=== PATIENT | male | born 1985 | race Caucasian/White ===

== ENCOUNTER 2018-02-15 03:00 | Emergency (ER) | payer OTHER ==
[~2018-02-15] VITALS: Ht 177.8 cm; Wt 83.9 kg
[2018-02-15 03:16] VITALS: BP 160/95
--- NOTE | 2018-02-15 03:25 | ED EYE COMPLAINT ---
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 yes Onset: Gradual Duration: hour(s): Timing: recent history Injury Environment: home Severity: moderate Left Eye Associated Symptoms: burning, redness, increased tearing Right Eye Associated Symptoms: normal HPI: 32 yo gentleman presents with left eye burning, increased tearing, and the sensation of a foreign body in his eye. He notes that he has had these symptoms for the past 12 hours. "I felt something go in my eye... and now it's worse." "I was at work and I felt some dust or plaster or something get into my eye." He notes his symptoms are mostly in his left eye, "but then I feel it a little bit in the right." Past History Travel History Traveled to [place] past 21 day No Medical History Any Pertinent Medical History? see below for history Neurological: NONE EENT: NONE Cardiovascular: NONE Respiratory: NONE Gastrointestinal: NONE Hepatic: NONE Renal: NONE Musculoskeletal: NONE Psychiatric: NONE Endocrine: NONE Surgical History Surgical History: none Psychosocial History What is your primary language Maltese Tobacco Use: Never used ETOH Use: occasional use Family History Hx Contributory? No Review of Systems Review of Systems Constitutional: Reports: no symptoms. Eyes: Reports: no symptoms. Ear: Reports: no symptoms. Nose: Reports: no symptoms. Mouth: Reports: no symptoms. Throat: Reports: no symptoms. Respiratory: Reports: no symptoms. Cardiovascular: Reports: no symptoms. GI: Reports: no symptoms. Genitourinary: Reports: no symptoms. Musculoskeletal: Reports: no symptoms. Skin: Reports: no symptoms. Neurological/Psychological: Reports: no symptoms. Hematologic/Endocrine: Reports: no symptoms. Immunologic/Allergic: Reports: no symptoms. All Other Systems: Reviewed and Negative Physical Exam General Appearance: well developed/nourished, no apparent distress General Inspection: normal inspection Eyelid: normal inspection, everted for exam Conjunctiva/Sclera: injected Cornea: examined w/fluorescein, diffuse fluoroscein dye uptake. EOM: intact Pupil: normal accommodation, normal pupil, PERRL General Inspection: normal inspection Eyelid: normal inspection Conjunctiva/Sclera: injected Cornea: examined w/fluorescein, diffuse fluorescein dye uptake EOM: intact Pupil: normal accommodation, normal pupil, PERRL Physical Exam Head: atraumatic, normal appearance Ears: Bilateral: canal normal. Nose: normal inspection Mouth/Throat: normal mouth inspection Progress Differential Diagnosis: corneal abrasion, corneal foreign body, conjunctivitis Plan of Care: no FB visualized, fluoroscein dye administered in both eyes... polytrim prescribed... pt safe for discharge with close follow up advised. Departure Departure Disposition: HOME OR SELF CARE Condition: Stable Clinical Impression Primary Impression: Keratoconjunctivitis Referrals: Patient Has No Primary Care Dr (PCP/Family) Departure Forms: Customer Survey General Discharge Information Prescriptions: Current Visit Scripts Polytrim (Polytrim Eye Drops) 2 GTT OPH Q6 #40 ML x 7 days...BOTH EYES
[2018-02-15] MEDS ORDERED: POLYTRIM EYE DR10 ML OPH (03:40)
== END 2018-02-15 03:45 ==
LOC: ERH 03:00
DX: H16.202 Unspecified keratoconjunctivitis, left eye (principal)